=== PATIENT | female | born 1975 | race Hispanic/Latino ===

== ENCOUNTER 2021-03-02 12:59 | Emergency (ER) | payer OTHER ==
[~2021-03-02] VITALS: Ht 154.9 cm; Wt 53.5 kg
[2021-03-02] MEDS ORDERED: MORPHINE SULFATE INJ 2 MG/ML SYR IV STA (14:09)
[2021-03-02] MEDS ORDERED: METOCLOPRAMIDE HCL 10 MG/2ML VIAL IV ONE (14:15)
[2021-03-02] MEDS ORDERED: TRAZODONE HCL50 MG PO ×2 (14:34→14:36)
== END 2021-03-02 14:47 | disposition home or self-care (01) ==
LOC: FSED 13:45
DX: U07.1 COVID-19 (principal); G47.00 Insomnia, unspecified
CPT/HCPCS: 99282